=== PATIENT | female | born 2000 | race Caucasian/White ===

== ENCOUNTER → 2023-09-12 10:21 | Outpatient (REF) | payer BC, SELFPAY | LOC: PAVMRI 10:21 | PROVIDERS: ATTENDING PHYSICIAN Orthopaedic Surgery; FAMILY PHYSICIAN Family Medicine | DX: M79.671 Pain in right foot (principal) | CPT/HCPCS: 73718 ==

== ENCOUNTER 2023-10-13 23:49 | Emergency (ER) | payer BC, SELFPAY ==
--- NOTE | 2023-10-14 01:04 | ED.GENMED ---
History of Present Illness
<Heather Morales DO - Last Filed: 10/14/23 01:15>
General
Chief Complaint: Ear Problem
Time Seen by Provider: 10/14/23 00:49
<GALI Mack - Last Filed: 10/14/23 01:13>
General
Source: patient
Exam Limitations: none
Nursing documentation reviewed up to this point in time: agreed with
Travel History
Have you had any contact with someone who has COVID-19?: No
Do you have any symptoms of coronavirus? Fever > 100 degrees, chills, cough, shortness of breath, sore throat, loss of taste or smell, muscle aches, or headache?: No
History of Present Illness
History of Present Illness:
This is a 22 year old female with no significant PMHx who presents to the ED with complaint of right ear pain x4 hours. She states she was recently swimming this week. She also had mild congestion and sore throat earlier this week that has now
resolved. She has a history of recurrent otitis media that is typically treated with Cephalexin. Her last ear infection was 6 months ago. She denies any hearing loss, tinnitus, dizziness, lightheadedness, headache, NVD, CP, SOB.
Past History
<GALI Mack - Last Filed: 10/14/23 01:13>
Social History
Tobacco: Other (There is no smoking in the family, the child is a full-time student )
Review of Systems
<GALI Mack - Last Filed: 10/14/23 01:13>
Review of Systems
Allergies reviewed?: Yes
All Other Systems: Not applicable
Constitutional: Reports no symptoms
EENT: Reports sore throat (Resolved) and other (R ear pain, congestion that is now resolved )
Respiratory: Reports no symptoms
Cardiac: Reports no symptoms
ABD/GI: Reports no symptoms
: Reports no symptoms
Musculoskeletal: Reports no symptoms
Skin: Reports no symptoms
Neurological: Reports no symptoms
Endocrine: Reports no symptoms
Hematologic/Lymphatic: Reports no symptoms
Psychiatric: Reports no symptoms
Phy Exam
<ST MartinaPA - Last Filed: 10/14/23 01:13>
General Physical Exam
General Presentation: well appearing and no apparent distress
General Skin: warm and dry
General Habitus: normal
General Mental: alert
General Hydration: appears well hydrated
ENT Exam
ENT Exam: EOMI, pharynx normal, neck supple, normocephalic and TM's abnormal (Bulging and erythematous TM's )
Eye Exam
Eye Exam: PERRL, cornea clear and conjunctiva normal
Cardiovascular Exam
Cardiovascular Exam: regular rate/rhythm, no edema, no murmur and normal peripheral pulses
Pulmonary Exam
Pulmonary Exam: lungs clear, no respiratory distress, no rales, no crackles, no rhonchi, no stridor, no wheezing and no cough
Gastrointestinal Exam
Gastrointestinal Exam: normal bowel sounds, non tender, soft, no organomegaly, no pulsatile mass and non distended
Neurological Exam
Neurological Exam: alert, oriented x3, no motor deficits and speech normal
Musculoskeletal Exam
Musculoskeletal Exam: full ROM and no edema
Skin Exam
Skin Exam: normal color, warm/dry, no rash and no petechia
Psychiatric Exam
Psychiatric Exam: normal mood/affect
Course
<Heather Morales DO - Last Filed: 10/14/23 01:15>
Orders/Labs/Results
Orders:
Orders
10/14/23 01:07
Cephalexin Monohydrate [Keflex] 1,000 mg PO NOW STA
Ibuprofen [Motrin] 600 mg PO NOW STA
Vital Signs
Initial and Last Documented VS:
Initial Vital Signs
Temp Pulse Resp Pulse Ox
98 F 94 22 100
10/13/23 23:51 10/13/23 23:51 10/13/23 23:51 10/13/23 23:51
Last Documented Vital Signs
Temp Pulse Resp Pulse Ox
98 F 94 22 100
10/13/23 23:51 10/13/23 23:51 10/13/23 23:51 10/13/23 23:51
<GALI Mack - Last Filed: 10/14/23 01:13>
Orders/Labs/Results
Orders:
Orders
10/14/23 01:07
Cephalexin Monohydrate [Keflex] 1,000 mg PO NOW STA
Ibuprofen [Motrin] 600 mg PO NOW STA
Vital Signs
Initial and Last Documented VS:
Initial Vital Signs
Temp Pulse Resp Pulse Ox
98 F 94 22 100
10/13/23 23:51 10/13/23 23:51 10/13/23 23:51 10/13/23 23:51
Last Documented Vital Signs
Temp Pulse Resp Pulse Ox
98 F 94 22 100
10/13/23 23:51 10/13/23 23:51 10/13/23 23:51 10/13/23 23:51
<GALI Mack - Last Filed: 10/14/23 01:13>
MDM/Problems Addressed
Differential Diagnosis Includes:
Otitis media vs externa
Otitis externa considered since she was recently swimming. However, her R ear has bulging and erythematous TM. She has a low grade fever of 99.1 degrees F PO. She was last treated for otitis media in November 2022 successfully with Cephalexin. I suspect
otitis media and will treat with course of Cephalexin.
<Heather Morales DO - Last Filed: 10/14/23 01:15>
*Pulse Oximetry
Patient hypoxic: no
*Critical Care Note
Total Time (30-74mins, 75-104mins- exclusive of procedures): Not Applicable
ED Attending Note
<Heather Morales DO - Last Filed: 10/14/23 01:15>
ED Attending Note
Patient seen and examined by attending physician: Yes
I performed the substantive portion of visit, reviewed & personally made and approve the management plan that is documented in note by myself or DUNCAN.: Yes
I performed a history and physical exam of patient and discussed management with resident, I reviewed resident's note and agree with documented findings and plan of care.: Yes
ED Attending Note:
This is a 22-year-old female who complains of right ear pain that began tonight, moderate in nature accompanied with fever, mild chills. She does admit to mild sore throat and mild nasal congestion throughout the week.
She has prior history of otitis media and symptoms feel similar. Last episode November 2022, successfully treated with Keflex at that time.
Maintained on control pills, menses have been regular, denies risk of .
She denies headache, no neck pain, no nausea or vomiting. She has not taken anything for fever nor discomfort tonight.
GENERAL: Alert , in no apparent distress
EYE: anicteric
NECK: Supple, nontender, no meningismus, no significant adenopathy.
ENT: posterior pharynx has very minimal erythema but no edema nor exudate, oral mucosa is moist. Right TM is significantly red, dull, minimally bulging, canal is clear. Left TM and canal are clear. Mildly boggy turbinates without rhinorrhea.
CARDIAC: Regular rate and rhythm. no murmur.
LUNGS: Clear breath sounds bilaterally, no acute respiratory distress, no wheezes/rales/rhonchi
NEUROLOGICAL: Alert and oriented x3, no focal neuro deficits. Gait is molina and steady.
SKIN: Warm and dry, normal color, skin intact. No rash.
MUSCULOSKELETAL: No C/C/E. peripheral pulses are full and equal b/l. No palpable tenderness.
PSYCH: Normal and appropriate interaction.
History and exam consistent with acute right otitis media.
Will treat with a course of Keflex and give ibuprofen for pain.
Nothing in history nor exam to suggest malignant otitis media and overall well in appearance.
Recommend supportive measures, elevating head of bed over the next several nights, continuing Tylenol versus ibuprofen as needed for fever, pain.
Dry ear precautions.
Prompt follow-up with PCP for recheck.
<GALI Mack - Last Filed: 10/14/23 01:13>
-
Portions of this chart may have been created with voice recognition software.� Occasional wrong word or��sound alike� substitutions may have occurred due to the inherent limitations of voice recognition software.
Discharge Plan
Departure
Patient Disposition: Home (Routine Discharge)
Date of Disposition: 10/14/23
Time of Disposition: 01:13
Patient with high blood pressure during this ER visit?: No
Condition: Good
Discharge Problem:
Acute right otitis media
Instructions: Ear Infections in Adults (DC)
Prescriptions:
New
cephalexin 500 mg capsule
1,000 mg PO BID 7 Days Qty: 28 0RF
No Action
cetirizine [Zyrtec] 10 MG capsule
10 mg PO
azithromycin 200 MG/5 ML suspension for reconstitution
200 mg PO DAILY Qty: 15 0RF
Rx Instructions:
100mg day 2-5
Referrals:
Caro Bee DO [Family Provider] - Call in 1-3 days for appt
Interventions
Interventions:
*Risk Screen - Suicide Last Done: 10/13/23 23:51
*Neglect/Abuse Screening Last Done: 10/13/23 23:51
Discharge Date and Time
Print Language: PORTUGUESE
[2023-10-14] MEDS: KEFLEX 1000 MG PO (01:11)
[2023-10-14] MEDS: MOTRIN 600 MG PO (01:11)
[2023-10-14 01:15] VITALS: BP 124/91
== END 2023-10-14 01:20 | disposition home or self-care (01) ==
LOC: EMR 23:49
PROVIDERS: EMERGENCY PHYSICIAN Emergency Medicine; FAMILY PHYSICIAN Family Medicine
DX: H66.91 Otitis media, unspecified, right ear (principal)
CPT/HCPCS: 99283

== ENCOUNTER → 2023-11-24 12:02 | Outpatient (REF) | payer BC, SELFPAY ==
[2023-11-26 08:36] LABS: Quantiferon Mitogen minus NIL 9.92 IU/mL; Quantiferon NIL 0.08 IU/mL; Quantiferon Plus TB1 minus NIL 0.02 IU/mL (<=0.34); Quantiferon Plus TB2 minus NIL 0.01 IU/mL (<=0.34); Quantiferon TB Gold Plus Negative (Negative)
== END ==
LOC: REG 12:02
PROVIDERS: ATTENDING PHYSICIAN Family Medicine
DX: Z11.1 Encounter for screening for respiratory tuberculosis (principal)
CPT/HCPCS: 36415; 86480

== ENCOUNTER → 2023-11-28 14:54 | Outpatient (REF) | payer BC, SELFPAY | LOC: CPAP 14:54 | PROVIDERS: ATTENDING PHYSICIAN Obstetrics & Gynecology Gynecology | DX: Z01.419 Encounter for gynecological examination (general) (routine) without abnormal findings (principal); Z11.3 Encounter for screening for infections with a predominantly sexual mode of transmission | CPT/HCPCS: 87491; 87591 ==

== ENCOUNTER → 2024-08-23 12:13 | Outpatient (REF) | payer BC, SELFPAY ==
[2024-08-25 12:05] LABS: Quantiferon TB Gold Plus Negative (Negative)
== END ==
LOC: REG 12:13
PROVIDERS: ATTENDING PHYSICIAN Family Medicine
DX: Z11.1 Encounter for screening for respiratory tuberculosis (principal)
CPT/HCPCS: 36415; 86480